=== PATIENT | male | born 1970 | race Caucasian/White ===

== ENCOUNTER 2019-10-24 14:18 | Emergency (ER) | payer BC ==
[~2019-10-24] VITALS: Ht 177.8 cm; Wt 91.1 kg
[2019-10-24] MEDS ORDERED: BOOSTRIX/ADACEL VACCINE (DIPHTH/PERTUSS/ACELL/TETANUS) 0.5ML SYR IM ONE (15:00)
[2019-10-24] MEDS ORDERED: ceFAZolin SOD 1 GM in D5W MINI-BAG PLUS 50 ML IV ONE (15:00)
[2019-10-24] MEDS ORDERED: LIDOCAINE 1% MDV 20ML VIAL INFIL ONE (16:00)
[2019-10-24] MEDS ORDERED: KEFL500C17 PO (16:43)
[2019-10-24 17:03] VITALS: BP 145/87
--- NOTE | 2019-10-25 08:05 | REP ---
REASON: Pain after trauma. The exam is limited by persistent flexion of the 3rd digit on all views. This causes superimposition of the osseous structures. There is no gross fracture. Electronically Signed by Obinna Cramer DO 10/25/2019 08:56 A
== END 2019-10-24 17:07 | disposition home or self-care (01) ==
LOC: M ED 14:18
DX: S66.322A Laceration of extensor muscle, fascia and tendon of right middle finger at wrist and hand level, initial encounter (principal); W26.8XXA Contact with other sharp object(s), not elsewhere classified, initial encounter; Y92.009 Unspecified place in unspecified non-institutional (private) residence as the place of occurrence of the external cause; Y93.H9 Activity, other involving exterior property and land maintenance, building and construction; Y99.8 Other external cause status
CPT/HCPCS: 12001; 73130; 90471; 90715; 96365; 99284; J0690; U0002

== ENCOUNTER 2022-04-04 10:38 | Emergency (ER) | payer BC ==
[~2022-04-04] VITALS: Ht 177.8 cm; Wt 93.4 kg
[~2022-04-04 10:38] MED LIST: KEFL500C17 PO
[2022-04-04] MEDS ORDERED: IBUP80TA (11:01)
[2022-04-04 13:27] LABS: BASO # 0.1 10^3/uL (0.0-0.2); BASO % 2.2 % (0.0-1.0); EOS # 0.2 10^3/uL (0.0-0.5); HEMOGLOBIN 16.8 g/dl (13.5-17.5); LYMPH # 0.9 10^3/uL (1.5-5.0); LYMPH % 20.5 % (24.0-44.0); MEAN CORPUSCULAR HEMOGLOBIN 33.9 pg (27.0-33.0); MEAN CORPUSCULAR HGB CONC 35.7 g/dl (32.0-36.5); MEAN CORPUSCULAR VOLUME 94.9 fl (80.0-96.0); MONO # 0.6 10^3/uL (0.0-0.8); MONO % 13.9 % (2.0-8.0); NEUTROPHILS # 2.7 10^3/uL (1.5-8.5); NEUTROPHILS % 59.2 % (36.0-66.0); PLATELET COUNT, AUTOMATED 280 10^3/uL (150-450); RED BLOOD COUNT 4.95 10^6/uL (4.30-6.10); WHITE BLOOD COUNT 4.5 10^3/uL (4.0-10.0)
[2022-04-04 13:49] LABS: ALKALINE PHOSPHATASE 79 U/L (46-116); ALT/SGPT 52 U/L (7.0-40); AST/SGOT 46 U/L (<34); BILIRUBIN,TOTAL 0.8 MG/DL (0.3-1.2); BLOOD UREA NITROGEN 7 MG/DL (9-23); CALCIUM LEVEL 9.5 MG/DL (8.5-10.1); CARBON DIOXIDE LEVEL 23 MMOL/L (20-31); CHLORIDE LEVEL 103 MMOL/L (98-107); CREATININE FOR GFR 0.68 MG/DL (0.70-1.30); GLOMERULAR FILTRATION RATE > 60.0 (>56); GLUCOSE, FASTING 88 MG/DL (60-100); POTASSIUM SERUM 4.9 MMOL/L (3.5-5.1); SODIUM LEVEL 134 MMOL/L (136-145); TOTAL PROTEIN 7.4 G/DL (5.7-8.2)
[2022-04-04] MEDS ORDERED: ISOVUE-370 76% 100ML VIAL As Ordered ONE (13:58)
[2022-04-04] MEDS ORDERED: PROC1CRE TOP (16:00)
[2022-04-04] MEDS ORDERED: AMOX875T2 PO (16:00)
[2022-04-04 16:11] VITALS: BP 113/96
== END 2022-04-04 16:24 | disposition home or self-care (01) ==
LOC: M ED 10:38
DX: K61.1 Rectal abscess (principal); L72.0 Epidermal cyst; K64.9 Unspecified hemorrhoids; L40.9 Psoriasis, unspecified; F17.200 Nicotine dependence, unspecified, uncomplicated; F12.10 Cannabis abuse, uncomplicated

== ENCOUNTER → 2022-05-08 | Outpatient (CLI) | payer BC ==
[~2022-05-08] MED LIST changes: +AMOX875T2 PO; +IBUP80TA; +PROC1CRE TOP
== END ==
LOC: M RAD 16:20
PROVIDERS: ATTEND Registered Nurse
DX: Z12.2 Encounter for screening for malignant neoplasm of respiratory organs (principal); F17.210 Nicotine dependence, cigarettes, uncomplicated

== ENCOUNTER → 2022-05-14 | Outpatient (CLI) | payer BC | LOC: M SLEEP HO 11:25 | PROVIDERS: ATTEND Registered Nurse | DX: G47.33 Obstructive sleep apnea (adult) (pediatric) (principal); R06.83 Snoring ==

== ENCOUNTER → 2022-06-12 | Outpatient (CLI) | payer BC | LOC: M LABSMTC 09:06 | PROVIDERS: ATTEND Anesthesiology | DX: Z01.818 Encounter for other preprocedural examination (principal) ==

== ENCOUNTER 2022-06-14 10:52 | Day surgery (SDC) | payer BC ==
[~2022-06-14] VITALS: Ht 172.7 cm; Wt 93.4 kg
[~2022-06-14 10:52] MED LIST changes: +LIDOCAINE 2% 100MG/5ML SDV (FOR ANES.) As Ordered ONE; +NS 1,000 ML IV ONE; +propofoL 200 MG/20 ML VIAL As Ordered ONE
[2022-06-14 12:20] VITALS: BP 130/78
== END 2022-06-14 12:29 | disposition home or self-care (01) ==
LOC: M OPP 10:52
PROVIDERS: ATTEND Surgery
DX: Z12.11 Encounter for screening for malignant neoplasm of colon (principal); Z80.0 Family history of malignant neoplasm of digestive organs; K57.30 Diverticulosis of large intestine without perforation or abscess without bleeding; F17.290 Nicotine dependence, other tobacco product, uncomplicated; Z79.899 Other long term (current) drug therapy

== ENCOUNTER 2022-07-10 08:12 | Emergency (ER) | payer BC ==
[~2022-07-10] VITALS: Ht 177.8 cm; Wt 98.6 kg
[~2022-07-10 08:12] MED LIST changes: -LIDOCAINE 2% 100MG/5ML SDV (FOR ANES.) As Ordered ONE; -NS 1,000 ML IV ONE; -propofoL 200 MG/20 ML VIAL As Ordered ONE
[2022-07-10] MEDS ORDERED: IBUP80TA (08:34)
[2022-07-10] MEDS ORDERED: SILD50TA2 (08:34)
[2022-07-10 10:47] LABS: BLOOD UREA NITROGEN 5 MG/DL (9-23); CALCIUM LEVEL 8.7 MG/DL (8.5-10.1); CARBON DIOXIDE LEVEL 26 MMOL/L (20-31); CHLORIDE LEVEL 106 MMOL/L (98-107); CREATININE FOR GFR 0.53 MG/DL (0.70-1.30); GLOMERULAR FILTRATION RATE > 60.0 (>56); GLUCOSE, FASTING 85 MG/DL (60-100); INR 0.99; PARTIAL THROMBOPLASTIN TIME 27.2 SECONDS (24.8-34.2); POTASSIUM SERUM 4.7 MMOL/L (3.5-5.1); PROTHROMBIN TIME 13.3 SECONDS (12.5-14.5); SODIUM LEVEL 138 MMOL/L (136-145)
[2022-07-10] MEDS ORDERED: APIXABAN 5 MG TAB (ELIQUIS) PO ONE (11:15)
[2022-07-10 11:28] VITALS: BP 167/105
[2022-07-10] MEDS ORDERED: ELIQ5TAB PO (11:38)
== END 2022-07-10 11:52 | disposition home or self-care (01) ==
LOC: M ED 08:12
DX: I80.12 Phlebitis and thrombophlebitis of left femoral vein (principal); F17.200 Nicotine dependence, unspecified, uncomplicated

== ENCOUNTER → 2022-08-08 | Outpatient (REF) | payer BC ==
[~2022-08-08] MED LIST changes: +ELIQ5TAB PO; +SILD50TA2
== END ==
LOC: M SFHCDERM 12:43
PROVIDERS: ATTEND Nurse Practitioner Family
DX: L02.91 Cutaneous abscess, unspecified (principal)

== ENCOUNTER → 2023-02-04 | Outpatient (CLI) | payer BC ==
[~2023-02-04] MED LIST changes: +GASTROGRAFIN SOLUTION 30ML As Ordered ONE; +ISOVUE-370 76% 100ML VIAL As Ordered ONE; -SILD50TA2; +SILD50TA2 PO
== END ==
LOC: M RAD 12:07
PROVIDERS: ATTEND Internal Medicine Hematology & Oncology
DX: M79.89 Other specified soft tissue disorders (principal); I82.532 Chronic embolism and thrombosis of left popliteal vein
CPT/HCPCS: 71260; 74177; 93971; Q9963; Q9967

== ENCOUNTER → 2024-03-16 | Outpatient (CLI) | payer BC ==
[~2024-03-16] MED LIST changes: -GASTROGRAFIN SOLUTION 30ML As Ordered ONE; -ISOVUE-370 76% 100ML VIAL As Ordered ONE
== END ==
LOC: M RAD 09:11
PROVIDERS: ATTEND Registered Nurse
DX: Z12.2 Encounter for screening for malignant neoplasm of respiratory organs (principal); F17.210 Nicotine dependence, cigarettes, uncomplicated